=== PATIENT | female | born 1970 | race Caucasian/White ===

== ENCOUNTER 2025-01-12 07:26 | Inpatient (IN) | payer MEDICAID, OTHER ==
[2025-01-12] VITALS (10 sets, daily range): BP systolic 121–135; BP diastolic 76–93; PULSE 77–111; RESP 17–20; TEMP 97.9–98.4; O2SAT 90–97
[~2025-01-12] VITALS: Ht 160 cm; Wt 84.7 kg
[~2025-01-12 07:26] MED LIST: IRONTAB35; LISI20TA56
--- NOTE | 2025-01-12 07:55 | ED.PDOC ---
SOB-HPI HPI Comments 54 year old female PMHx HTN, COPD, asthma presents to the ED with a chief complaint of shortness of breath onset 1 day. Patient states she has been experiencing shortness of breath as well as cough for the past day. Upon ED arrival, O2 sat was 91%, accessory muscle was being used, was placed on 2L NC. Patient states she was in this ED yesterday with her son, similar symptoms. She had breathing treatment at home with no relief. Denies fever, chills, headache, dizziness, chest pain, nausea, vomiting, diarrhea. No other symptoms or modifying factors present at this time. Chief Complaint: Shortness of Breath Time Seen by MD: 07:40 Reviewed notes: Medications, Allergies Information Source: Patient Mode of Arrival: Ambulatory Severity: Moderate Timing: Days Duration: Since onset Context: At Rest PE Risk Factors: None History of: Asthma, COPD Prehospital treatment: None Modifying Factors: Nothing Associated Signs and Symptoms: Cough Past Medical History PAST MEDICAL HISTORY: Asthma, COPD, HTN Surgical History: BTL PUBLIC HEALTH AIDE History: No Pertinent PUBLIC HEALTH AIDE History Family History Family History: No family hx of Cancer, No family hx of DM Social History Smoker: Cigarettes, Less Than 1 Pack/Day Alcohol: Other Drugs: Denies Drug Use Lives In: Home Constitutional: denies: chills, diaphoresis, fatigue, fever, malaise, sweats, weakness, others EENTM: denies: blurred vision, double vision, ear bleeding, ear discharge, ear drainage, ear pain, ear ringing, eye pain, eye redness, hearing loss, mouth pain, mouth swelling, nasal discharge, nose bleeding, nose congestion, nose pain, photophobia, tearing, throat pain, throat swelling, voice changes, others Respiratory: reports: cough, shortness of breath; denies: hemoptysis, orthopnea, SOB at rest, SOB with excertion, stridor, wheezing, others Cardiovascular: denies: chest pain, dizzy spells, diaphoresis, Dyspnea on exertion, edema, irregular heart beat, left arm pain, lightheadedness, palpitations, PND, syncope, others Gastrointestinal: denies: abdomen distended, abdominal pain, blood streaked bowels, constipated, diarrhea, dysphagia, difficulty swallowing, hematemesis, melena, nausea, poor appetite, poor fluid intake, rectal bleeding, rectal pain, vomiting, others Genitourinary: denies: abnormal vagina bleeding, burning, dyspareunia, dysuria, flank pain, frequency, hematuria, incontinence, pain, , vagina discharge, urgency, others Neurological: denies: dizziness, fainting, headache, left sided numbness, left sided weakness, numbness, paresthesia, pre-existing deficit, right sided numbness, right sided weakness, seizure, speech problems, tingling, tremors, weakness, others Musculoskeletal: denies: back pain, gout, joint pain, joint swelling, muscle pain, muscle stiffness, neck pain, others Integumetry: denies: bruises, change in color, change in hair/nails, dryness, laceration, lesions, lumps, rash, wounds, others Allergic/Immunocompromised: denies: Difficulty Healing, Frequent Infections, Hives, Itching, others Hematologic/Lymphatic: denies: anemia, blood clots, easy bleeding, easy bruising, swollen glands, others Endocrine: denies: excessive hunger, excessive sweating, excessive thirst, excessive urination, flushing, intolerance to cold, intolerance to heat, unexplained weight gain, unexplained weight loss, others Psychiatric: denies: anxiety, bipolar disorder, depression, hopeless, panic disorder, schizophrenia, sleepless, suicidal, others All Other Systems: Reviewed and Negative Physical Exam General Appearance: Moderate Distress, Normal HEENT: Normal ENT Inspection, Pharynx Normal, TMs Normal Neck: Full Range of Motion, Non-Tender, Normal, Normal Inspection Respiratory: Accessory Muscle Use, Chest Non-Tender, Respiratory Distress, Wheezing Cardiovascular: No Edema, No JVD, No Murmur, No Gallop, Normal Peripheral Pulses, Regular Rate/Rhythm Breast Exam: Deferred Gastrointestinal: No Organomegaly, Non Tender, No Pulsatile Mass, Normal Bowel Sounds, Soft Genitalia: Deferred Pelvic: Deferred Rectal: Deferred Extremities: No calf tenderness, Normal capillary refill, Normal inspection, No rmal range of motion, Non-tender, No pedal edema Musculoskeletal : Apperance: Normal Neurologic: Alert, fine grader II-XII nml as Tested, No Motor Deficits, Normal Affect, Normal Mood, No Sensory Deficits Cerebellar Function: NOT DONE Reflexes: NOT DONE Skin: Dry, Normal Color, Warm Peripheral Pulses: 3+ Radial (R), 3+ Radial (L) Lymphatic: No Adenopathy Was a procedure done? Was a procedure done?: No Differential Dx Differential Diagnosis: Anxiety, Asthma, Bronchitis, CHF, COPD X-Ray, Labs, Meds, VS Vital Signs Date Time Temp Pulse Resp B/P (MAP) Pulse Ox O2 Delivery O2 Flow Rate FiO2 01/12/25 08:41 18 95 Nasal Cannula* 2 28 01/12/25 08:24 84 01/12/25 07:37 81 01/12/25 07:35 97.7 86 17 127/81 (96) 95 97.7 01/12/25 07:35 86 17 95 Nasal Cannula* 2 28 01/12/25 07:27 98.9 100 24 137/86 91 98.9 Lab Test 01/12/25 09:05 01/12/25 08:37 Range/Units Urine Color Light-yellow Yellow Urine Clarity Clear Clear Urine pH 6.5 5.0-9.0 Urine Specific [place] 1.011 1.001-1.035 Urine Protein Negative Negative Urine Ketones Negative Negative Urine Blood Negative Negative /uL Urine Nitrite Negative Negative Urine Bilirubin Negative Negative Urine Urobilinogen Normal Negative mg/dL Urine Leukocyte Esterase Negative Negative /uL Urine RBC <1 0 - 4 /hpf Urine Microscopic WBC < 1 0-5 /HPF Urine Squamous Epithelial Cells Few <5 /hpf Urine Bacteria None seen None Seen /hpf Urine Glucose Normal Normal mg/dL White Blood Count 7.0 4.4-10.8 10^3/uL Red Blood Count 4.47 4.0-5.20 10^6/uL Hemoglobin 13.5 12.2-16.2 g/dL Hematocrit 40.6 36.0-46.0 % Mean Corpuscular Volume 90.8 80.0-100.0 fL Mean Corpuscular Hemoglobin 30.3 28.0-32.0 pg Mean Corpuscular Hemoglobin Concent 33.3 32.0-36.0 g/dL Red Cell Distribution Width 13.6 11.8-14.3 % Platelet Count 285 140-450 10^3/uL Mean Platelet Volume 7.8 6.9-10.8 fL Neutrophils (%) (Auto) 64.6 37.0-80.0 % Lymphocytes (%) (Auto) 23.8 10.0-50.0 % Monocytes (%) (Auto) 6.9 0.0-12.0 % Eosinophils (%) (Auto) 4.0 0.0-7.0 % Basophils (%) (Auto) 0.7 0.0-2.0 % Neutrophils # (Auto) 4.5 1.6-8.6 10 ^3/uL Lymphocytes # (Auto) 1.7 0.4-5.4 10 ^3/uL Monocytes # (Auto) 0.5 0-1.3 10 ^3/uL Eosinophils # (Auto) 0.3 0-0.8 10 ^3/uL Basophils # (Auto) 0.1 0-0.2 10 ^3/uL Nucleated Red Blood Cells 0.1 % Sodium Level 141 136-145 mmol/L Potassium Level 3.5 3.5-5.1 mmol/L Chloride Level 106 98-107 mmol/L Carbon Dioxide Level 27 20-31 mmol/L Anion Gap 8 5-15 Blood Urea Nitrogen 10 9-23 mg/dL Creatinine 0.74 0.550-1.02 mg/dL Glomerular Filtration Rate Calc 95 >90 mL/min BUN/Creatinine Ratio 13.5 10.0-20.0 Serum Glucose 108 H 74-106 mg/dL Calcium Level 10.5 H 8.7-10.4 mg/dL Troponin I High Sensitivity 3 L </=34 ng/L Current Medications Medications (Trade) Dose Ordered Sig/Yazmin Route Start Time Stop Time Status Last Admin Methylprednisolone Sodium Succinate (Solu Medrol) 125 mg ONCE ONCE IV 01/12/25 08:30 01/12/25 08:32 DC 01/12/25 08:57 Albuterol (Ventolin Medneb) 5 mg ONCE ONCE NEB 01/12/25 08:30 01/12/25 08:32 DC 01/12/25 08:39 Patient alert. Vitals stable. Came in because of shortness a breath. Answering all questions. Using accessory muscles. Placed on oxygen. Possible pneumonitis. Possible pneumonia. Family members sick. WBC within normal limits. Hemoglobin within normal limits. Was given breathing treatment. Was given steroid. Explained to the patient. Continue monitoring. [address] [address] Ph: [phone] DIAGNOSTIC IMAGING Diagnostic Imaging Report : [id number] Signed PATIENT: ALLYN GUTIÉRREZ ACCT: [id number] UNIT: [id number] : 1970 LOC: ER ROOM / BED: / AGE / SEX: 54 / F ADM STATUS: REG ER SERVICE 9 ORDERING PHYSICIAN: JR GILES MD PROCEDURE(s): CXRP - CHEST PORTABLE REASON: sob ORDER NUMBER(s): [id number], ACCESSION NUMBER(s): [id number] INDICATION: sob TECHNIQUE: Frontal view of the chest. COMPARISON: None FINDINGS: . The heart and mediastinal contours are grossly unremarkable. There is no evidence of pleural disease. The lungs are clear. The bony structures of the chest are intact without fracture. IMPRESSION: 1. No evidence of acute disease. ATED BY: PER MOORE MD DICTATED DATE/TIME: 01/12/25913 SIGNED BY: PER MOORE MD SIGNED DATE/TIME: 01/12/25913 CC: Time of 1ST Reevaluation: 08:10 Reevaluation 1ST: Unchanged Patient Education/Counseling: Diagnosis, Treatment, Prognosis Family Education/Counseling: No Family Present SEPSIS Sepsis Screen Date sepsis recognized/suspect: Jan 12, 2025 Time Sepsis recognized/suspect: 727 Recent Procedure: No On Antibiotic Therapy: No Respiratory Rate >20: Yes Heart Rate >90: Yes Temp<36 C (96.8 F) or >38.3 C: No SBP <90 or MAP <65 mmHG: No New Acute Mental Status Change: No Is the patient on CPAP, BIPAP,: No Physician Orders Chest Portable (01/12/25 08:30) Electrocardigram (01/12/25 08:44) Vital Signs Date Time Temp Pulse Resp B/P (MAP) Pulse Ox O2 Delivery O2 Flow Rate FiO2 01/12/25 08:41 18 95 Nasal Cannula* 2 28 01/12/25 08:24 84 01/12/25 07:37 81 01/12/25 07:35 97.7 86 17 127/81 (96) 95 97.7 01/12/25 07:35 86 17 95 Nasal Cannula* 2 28 01/12/25 07:27 98.9 100 24 137/86 91 98.9 Laboratory Tests Test 01/12/25 08:37 White Blood Count 7.0 10^3/uL (4.4-10.8) Medications Medications Dose Ordered Sig/Yazmin Route Start Time Stop Time Status Last Admin Dose Admin Albuterol 5 mg ONCE ONCE NEB 01/12/25 08:30 01/12/25 08:32 DC 01/12/25 08:39 Ipratropium [place] 0.5 mg STK-MED ONCE .ROUTE 01/12/25 08:38 01/12/25 08:33 DC 01/12/25 08:40 Methylprednisolone Sodium Succinate 125 mg ONCE ONCE IV 01/12/25 08:30 01/12/25 08:32 DC 01/12/25 08:57 Departure 1 Departure Time of Disposition: 09:42 Impression: Primary Impression: Acute respiratory distress Additional Impression: Pneumonitis Disposition: ADMITTED INPATIENT Admit to: Med Surg Condition: Guarded Critical Care Note Critical Care Time?: Yes (90 min-critical care time only) Stability Stability form required: No Heart Score Heart Score: Heart Score Response (Comments) Value History Slightly Suspicious 0 EKG Normal 0 Age 45-64 1 Risk Factors >3 or Hx ASHD 2 Troponin Normal limit 0 Total 3 I personally scribed for JR GILES MD ([email or web address]) on 01/12/25 at 07:55. Electronically submitted by Keesha Torres ([email or web address]). I personally scribed for JR GILES MD ([email or web address]) on 01/12/25 at 09:50. Electronically submitted by Keesha Torres ([email or web address]). JR GILES MD Jan 12, 2025 07:55
[2025-01-12] MEDS: ALBUTEROL SULF 2.5 MG/0.5ML(0.5%) NEB SOLN NEB ONE (08:39)
[2025-01-12] MEDS: IPRATROPIUM BROM 0.5 MG/2.5ML INH SOL ONE (08:40)
[2025-01-12] MEDS: ALBUTEROL SULF 2.5 MG/0.5ML(0.5%) NEB SOLN ONE (08:40)
[2025-01-12] MEDS: methylPREDNISolone SOD SUCC 125 MG/2 ML VL IV ONE (08:57)
[2025-01-12 09:06] LABS: Hematocrit 40.6 % (36.0-46.0); Hemoglobin 13.5 g/dL (12.2-16.2); Mean Corpuscular Hemoglobin 30.3 pg (28.0-32.0); Mean Corpuscular Volume 90.8 fL (80.0-100.0); Nucleated Red Blood Cells % 0.1 %
--- NOTE | 2025-01-12 09:16 | DVH ---
INDICATION: sob TECHNIQUE: Frontal view of the chest. COMPARISON: None FINDINGS: . The heart and mediastinal contours are grossly unremarkable. There is no evidence of pleural disea se. The lungs are clear. The bony structures of the chest are intact without fracture. IMPRESSION: 1. No evidence of acute disease.
[2025-01-12 09:20] LABS: Chloride 106 mmol/L (98-107); Sodium 141 mmol/L (136-145)
[2025-01-12 09:21] LABS: Urine Protein, UAD Negative (Negative)
[2025-01-12 09:21] LABS: Anion Gap 8 (5-15); Carbon Dioxide 27 mmol/L (20-31)
[2025-01-12 09:26] LABS: BUN/Creatinine Ratio 13.5 (10.0-20.0); Blood Urea Nitrogen 10 mg/dL (9-23)
[2025-01-12 09:27] LABS: Calcium 10.5 mg/dL (8.7-10.4); Glucose 108 mg/dL (74-106); Potassium 3.5 mmol/L (3.5-5.1)
[2025-01-12] MEDS ORDERED: ONDANSETRON HCL 4 MG/2 ML VIAL IV PRN (12:30)
--- NOTE | 2025-01-12 13:01 | DVHHP2 ---
History of Present Illness Reason for Visit: Shortness of breath History of Present Illness Pamela Pitt is a 54-year-old female with past medical history of asthma, COPD, and hypertension who comes to the hospital with complaints of shortness of breath and cough. The patient was in the ER yesterday with her adult autistic janet banks who has been sick with similar complaints. He was admitted. While she was in the ER she began to feel tired and a dry cough started. When he was moved to a room she went with him. She started feeling worse and her cough began to worsen. She went home hoping some rest would help, however she continued to worsen prompting her to come to be seen in the hospital. Cardiovascular: HTN Pulmonary: Asthma, COPD Past Surgical History: Tubal Ligation Smoke: <1 pack per day ALCOHOL: rare Drugs: None Lives: with Family Domestic Violence: Neg Review of Systems Constitutional: No: Fever, Chills, Sweats, Weakness, Malaise, Other Eyes: No: Pain, Vision change, Conjunctivae inflammation, Eyelid inflammation, Other, Redness ENT: No: Ear pain, Ear discharge, Nose pain, Nose discharge, Nose congestion, Mouth pain, Mouth swelling, Throat pain, Throat swelling, Other Respiratory: Cough, Shortness of breath, SOB with excertion, Wheezing, Pleuritic Pain; No: Dry, Hemoptysis, Sputum, Wheezing, Other Cardiovascular: No: Chest Pain, Palpitations, Orthopnea, Paroxysmal Noc. Dyspnea, Edema, Lt Headedness, Other Gastrointestinal: No: Nausea, Vomiting, Abdominal Pain, Diarrhea, Constipation, Melena, Hematochezia, Other Genitourinary: No Dysuria, No Frequency, No Incontinence, No Hematuria, No Retention, No Other Musculoskeletal: No: other, neck pain, shoulder pain, arm pain, back pain, hand pain, leg pain, foot pain Skin: No: Rash, Lesions, Jaundice, Bruising, Other Neurological: No: Weakness, Numbness, Incoordination, Change in speech, Confusion, Seizures, Other Allergies: Coded Allergies: NO KNOWN ALLERGIES (Unverified , 11/14/12) Medications Current Medications Medications Dose Ordered Sig/Yazmin Route Start Time Stop Time Status Last Admin Dose Admin Acetaminophen/ Hydrocodone Bitart 1 tab Q4HP PRN PO 01/12/25 12:30 Ondansetron HCl 4 mg Q4HP PRN IV 01/12/25 12:30 Docusate Sodium 100 mg BIDPRN PRN PO 01/12/25 12:30 Acetaminophen 650 mg Q6HP PRN PO 01/12/25 12:30 Exam Vital Signs Vital Signs Date Time Temp Pulse Resp B/P (MAP) Pulse Ox O2 Delivery O2 Flow Rate FiO2 01/12/25 12:00 75 15 129/76 (93) 97 01/12/25 08:41 Nasal Cannula* 2 28 01/12/25 07:35 97.7 97.7 General Appearance: Alert, Oriented X3, Cooperative, moderate distress HEENT: Atraumatic, PERRLA, Mucous membr. moist/pink Respiratory: Other (Wheezing throughout) Cardiovascular: Regular rate, Normal S1, Normal S2 Abdominal: Normal bowel sounds, Soft, No tenderness, No hepatospenomegaly Extremities: No clubbing, No cyanosis, No edema, Normal pulses, No tenderness/swelling Skin: No rashes, No breakdown, No significant lesion Neuro: Normal gait, Normal speech, Strength at 5/5 X4 ext, Normal tone Psych/Mental Status: Mental status NL, Mood NL Labs/Xrays Labs Test 01/12/25 09:05 01/12/25 08:37 Range/Units Urine Color Light-yellow Yellow Urine Clarity Clear Clear Urine pH 6.5 5.0-9.0 Urine Specific [place] 1.011 1.001-1.035 Urine Protein Negative Negative Urine Ketones Negative Negative Urine Blood Negative Negative /uL Urine Nitrite Negative Negative Urine Bilirubin Negative Negative Urine Urobilinogen Normal Negative mg/dL Urine Leukocyte Esterase Negative Negative /uL Urine RBC <1 0 - 4 /hpf Urine Microscopic WBC < 1 0-5 /HPF Urine Squamous Epithelial Cells Few <5 /hpf Urine Bacteria None seen None Seen /hpf Urine Glucose Normal Normal mg/dL White Blood Count 7.0 4.4-10.8 10^3/uL Red Blood Count 4.47 4.0-5.20 10^6/uL Hemoglobin 13.5 12.2-16.2 g/dL Hematocrit 40.6 36.0-46.0 % Mean Corpuscular Volume 90.8 80.0-100.0 fL Mean Corpuscular Hemoglobin 30.3 28.0-32.0 pg Mean Corpuscular Hemoglobin Concent 33.3 32.0-36.0 g/dL Red Cell Distribution Width 13.6 11.8-14.3 % Platelet Count 285 140-450 10^3/uL Mean Platelet Volume 7.8 6.9-10.8 fL Neutrophils (%) (Auto) 64.6 37.0-80.0 % Lymphocytes (%) (Auto) 23.8 10.0-50.0 % Monocytes (%) (Auto) 6.9 0.0-12.0 % Eosinophils (%) (Auto) 4.0 0.0-7.0 % Basophils (%) (Auto) 0.7 0.0-2.0 % Neutrophils # (Auto) 4.5 1.6-8.6 10 ^3/uL Lymphocytes # (Auto) 1.7 0.4-5.4 10 ^3/uL Monocytes # (Auto) 0.5 0-1.3 10 ^3/uL Eosinophils # (Auto) 0.3 0-0.8 10 ^3/uL Basophils # (Auto) 0.1 0-0.2 10 ^3/uL Nucleated Red Blood Cells 0.1 % Sodium Level 141 136-145 mmol/L Potassium Level 3.5 3.5-5.1 mmol/L Chloride Level 106 98-107 mmol/L Carbon Dioxide Level 27 20-31 mmol/L Anion Gap 8 5-15 Blood Urea Nitrogen 10 9-23 mg/dL Creatinine 0.74 0.550-1.02 mg/dL Glomerular Filtration Rate Calc 95 >90 mL/min BUN/Creatinine Ratio 13.5 10.0-20.0 Serum Glucose 108 H 74-106 mg/dL Calcium Level 10.5 H 8.7-10.4 mg/dL Troponin I High Sensitivity 3 L </=34 ng/L TECHNIQUE: Frontal view of the chest. FINDINGS: The heart and mediastinal contours are grossly unremarkable. There is no evidence of pleural disease. The lungs are clear. The bony structures of the chest are intact without fracture. IMPRESSION: 1. No evidence of acute disease. SEPSIS Sepsis Screen Date sepsis recognized/suspect: Jan 12, 2025 Time Sepsis recognized/suspect: 07 Recent Procedure: No On Antibiotic Therapy: No Respiratory Rate >20: No Heart Rate >90: No Temp<36 C (96.8 F) or >38.3 C: No SBP <90 or MAP <65 mmHG: No New Acute Mental Status Change: No Is the patient on CPAP, BIPAP,: No Physician Orders Chest Portable (01/12/25 08:30) Electrocardigram (01/12/25 08:44) Admit (01/12/25 12:29) Code Status (01/12/25 12:29) 2 Gm Sodium Diet (01/12/25 Lunch) Hydrocodone-Acet 5/325mg Tab ([place] (01/12/25 12:30) Ondansetron Hcl (Zofran) (01/12/25 12:30) Docusate Sodium Capsule (Colace Capsule) (01/12/25 12:30) Complete Blood Count (01/13/25 04:00) Comprehensive Metabolic Panel (01/13/25 04:00) Condition: Serious (01/12/25 12:29) Acetaminophen Tablet (Tylenol Tablet) (01/12/25 12:30) Vital Signs Date Time Temp Pulse Resp B/P (MAP) Pulse Ox O2 Delivery O2 Flow Rate FiO2 01/12/25 12:00 75 15 129/76 (93) 97 01/12/25 10:00 72 12 115/69 (84) 94 01/12/25 08:41 18 95 Nasal Cannula* 2 28 01/12/25 08:24 84 01/12/25 07:37 81 01/12/25 07:35 97.7 86 17 127/81 (96) 95 97.7 01/12/25 07:35 86 17 95 Nasal Cannula* 2 28 01/12/25 07:27 98.9 100 24 137/86 91 98.9 Laboratory Tests Test 01/12/25 08:37 White Blood Count 7.0 10^3/uL (4.4-10.8) Medications Medications Dose Ordered Sig/Yazmin Route Start Time Stop Time Status Last Admin Dose Admin Albuterol 5 mg ONCE ONCE NEB 01/12/25 08:30 01/12/25 08:32 DC 01/12/25 08:39 5 MG Ipratropium [place] 0.5 mg STK-MED ONCE .ROUTE 01/12/25 08:38 01/12/25 08:33 DC 01/12/25 08:40 0.5 MG Methylprednisolone Sodium Succinate 125 mg ONCE ONCE IV 01/12/25 08:30 01/12/25 08:32 DC 01/12/25 08:57 125 MG Assessment/Plan Assessment/Plan Assessment: Acute hypoxic respiratory failure, Possible pneumonitis, COPD exacerbation, Plan: Admit to Med-Surg, Breathing treatments, IV steroids, Supplemental oxygen as needed, COVID swab, Influenza A&B swab, Home medications reconciled, Plan discussed with: Patient My Orders Orders - KRISH OBRIEN Procedure Category Date Status Time Admit ADMIT 01/12/25 Transmitted 12:29 Code Status CODE 01/12/25 Transmitted 12:29 2 Gm Sodium Diet DIET 01/12/25 Transmitted Lunch Hydrocodone-Acet PHA 01/12/25 In Process 5/325mg Tab ([place] 12:30 Ondansetron Hcl PHA 01/12/25 In Process (Zofran) 12:30 Docusate Sodium PHA 01/12/25 In Process Capsule (Colace 12:30 Complete Blood Count LAB 01/13/25 Verified 04:00 Comprehensive LAB 01/13/25 Verified Metabolic Panel 04:00 Condition: Serious ALBER 01/12/25 In Process 12:29 Acetaminophen Tablet PHA 01/12/25 In Process (Tylenol Tablet) 12:30 Date of Service: Jan 12, 2025 Billing Provider: KRISH OBRIEN Common Visit Codes: [id number] INP/OBS CARE (MOD) KRISH OBRIEN Jan 12, 2025 13:01
[2025-01-12] MEDS: ALBUTEROL SULF 2.5 MG/0.5ML(0.5%) NEB SOLN NEB SCH (13:07)
[2025-01-12] MEDS: IPRATROPIUM BROM 0.5 MG/2.5ML INH SOL NEB SCH (13:07)
[2025-01-12 13:28] LABS: COVID19 ANTIGEN SOFIA FIA NEGATIVE (NEGATIVE)
[2025-01-12] MEDS ORDERED: AMLO1TAB23 PO (14:46)
[2025-01-12] MEDS: ACETAMINOPHEN 325 MG TAB PO PRN (20:35)
[2025-01-12] MEDS: methylPREDNISolone SOD SUCC 40 MG/ML VL IV SCH (21:54)
[2025-01-13] VITALS (18 sets, daily range): BP systolic 116–133; BP diastolic 62–96; PULSE 78–111; RESP 14–20; TEMP 97.8–98.5; O2SAT 93–100
[2025-01-13] MEDS: HYDROcodone-ACET 5/325MG TAB PO PRN (05:37)
[2025-01-13 06:09] LABS: Hematocrit 39.6 % (36.0-46.0); Hemoglobin 13.4 g/dL (12.2-16.2); Mean Corpuscular Hemoglobin 30.5 pg (28.0-32.0); Mean Corpuscular Volume 90.2 fL (80.0-100.0); Nucleated Red Blood Cells % 0.0 %
[2025-01-13 06:29] LABS: Alanine Aminotransferase 16 U/L (7-40); Alkaline Phosphatase 72 U/L (46-116); Carbon Dioxide 25 mmol/L (20-31)
[2025-01-13 06:30] LABS: Albumin 4.1 g/dL (3.2-4.8); Anion Gap 8 (5-15); BUN/Creatinine Ratio 16.4 (10.0-20.0); Blood Urea Nitrogen 12 mg/dL (9-23); Potassium 4.1 mmol/L (3.5-5.1); Sodium 141 mmol/L (136-145); Total Protein 7.1 g/dL (5.7-8.2)
[2025-01-13 06:31] LABS: Bilirubin, Total 0.8 mg/dL (0.2-1.0)
[2025-01-13 06:32] LABS: Calcium 10.6 mg/dL (8.7-10.4); Chloride 108 mmol/L (98-107); Glucose 143 mg/dL (74-106)
[2025-01-13] MEDS: AZITHROMYCIN 250 MG TAB PO ONE (10:44)
[2025-01-13] MEDS ORDERED: IPRATROPIUM BROM 0.5 MG/2.5ML INH SOL NEB PRN (13:15)
[2025-01-13] MEDS ORDERED: ALBUTEROL SULF 2.5 MG/0.5ML(0.5%) NEB SOLN NEB PRN (13:15)
--- NOTE | 2025-01-13 13:44 | ECG ---
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
--- NOTE | 2025-01-13 15:18 | DVHPNRES ---
Progress Note Date Seen: Jan 13, 2025 Resident Creating Document: YOVANA SEPULVEDA RESIDENT Medical Necessity Reason Pt with a Central, PICC or Fol: No Subjective Review of Systems Charo Pitt 54-year-old female with past medical history of asthma, COPD, hypertension, cardiomyopathy presented with complaints of shortness of breath, cough, chest tightness since 1 day. Patient states he was the ER the previous day with her adult autistic son who came in with similar complaints. He was admitted to the hospital the patient went back home. At home she experienced these symptoms which brought her back to the ED. She states that her last asthma attack was 1 year back. She states that she has to use rescue albuterol nebulization once in 3 months. PMHx:asthma, COPD, hypertension, cardiomyopathy PSHx: Tubal ligation Family history: no relevant family history Social history: 20 pack year smoking history, occasional alcohol use, denies illicit drug use. Home medication: Trelegy, amlodipine 10 mg Allergic history: no known allergies PCP: Dr. Chen CONSTITUTIONAL: Fever, night sweats, weight loss, Lymphadenopathy, ecchymoses, fatigue: Negative DERMATOLOGIC: Rash, New/growing/changing skin lesions: Negative HEENT: Vision change, eye pain, Rhinorrhea, sinus pain, epistaxis, dysphagia, odynophagia, globus sensation, Change in hearing, tinnitus, vertigo, otalgia, Dental problems, oral ulcers or lesions: : Negative ENDOCRINE: Weight change, heat or cold intolerance, tremor, insomnia, neck pain or swelling, Polyuria, polydipsia, polyphagia, Abnormal hair growth, change in nails: Negative CARDIOVASCULAR: Chest pain, palpitations, syncope, Edema, cyanosis, claudication, Orthopnea, paroxysmal nocturnal dyspnea: Negative PULMONARY: dyspnea with exertion, hemoptysis, wheezing, chest pain : Negative. Complains of shortness of breath and cough GI: Nausea, vomiting, diarrhea, melena, hematochezia, Change in appetite, abdominal pain, change in bowel habits or stools: Negative : Dysuria, frequency, urgency, Urinary incontinence, hematuria, foamy urine, nocturia, Change in libido, erectile dysfunction, Change in menses, dysmenorrhea, dyspaerunia, pelvic pain: : Negative MUSCULOSKELETAL: Joint swelling or pain, muscle pain, back pain: : Negative NEUROLOGIC: Headache, scotoma, Change in smell or taste, change in facial muscles, Muscle weakness, paresthesias, anesthesia, Ataxia, change in speech: Negative PSYCHIATRIC: Depression, anxiety, hallucinations, lilly, suicidal/homicidal thoughts, Binging, purging: Negative Objective vital signs Vital Sign Date Time Temp Pulse Resp B/P (MAP) Pulse Ox O2 Delivery O2 Flow Rate FiO2 01/13/25 14:49 93 01/13/25 14:06 101 14 01/13/25 12:45 98.0 133/78 (96) 98.0 01/13/25 10:25 Nasal Cannula* 3 32 Total Intake and Output 01/12/25 01/12/25 01/13/25 15:00 23:00 07:00 Intake Total 350 ml Balance 350 ml medications Current Medications Medications Dose Ordered Sig/Yazmin Route Start Time Stop Time Status Last Admin Dose Admin Acetaminophen/ Hydrocodone Bitart 1 tab Q4HP PRN PO 01/12/25 12:30 01/13/25 13:42 1 TAB Ondansetron HCl 4 mg Q4HP PRN IV 01/12/25 12:30 Docusate Sodium 100 mg BIDPRN PRN PO 01/12/25 12:30 Acetaminophen 650 mg Q6HP PRN PO 01/12/25 12:30 01/12/25 20:35 650 MG Methylprednisolone Sodium Succinate 40 mg BID IV 01/12/25 22:00 01/13/25 09:13 40 MG Albuterol 2.5 mg Q4HWA NEB 01/12/25 14:00 01/13/25 13:58 2.5 MG Ipratropium [place] 0.5 mg Q4HWA NEB 01/12/25 14:00 01/13/25 13:58 0.5 MG Amlodipine Besylate 10 mg DAILY PO 01/13/25 10:00 01/13/25 09:13 10 MG Albuterol 2.5 mg Q2HPRN PRN NEB 01/13/25 13:15 Ipratropium [place] 0.5 mg Q2HPRN PRN NEB 01/13/25 13:15 Examination General Appearance: Alert, Oriented X3, Cooperative, No acute distress HEENT: Atraumatic, PERRLA, EOMI, Mucous membrane moist/pink Respiratory: bilateral wheezing present Cardiovascular: Regular rate, Normal S1, Normal S2, No murmurs, no chest wall tenderness Abdominal: Normal bowel sounds, Soft, No tenderness, No hepatospenomegaly, No masses Extremities: No clubbing, No cyanosis, No edema, Normal pulses, No tenderness/swelling Skin: No rashes, No breakdown, No significant lesion Neuro: Normal gait, Normal speech, Strength at 5/5 X4 ext, Normal tone, Sensation intact, Cranial nerves 3-12 NL, Reflexes 2+ Psych/Mental Status: Mental status NL, Mood NL laboratory and microbiology Laboratory Tests 01/13/25 05:19 Test 01/13/25 05:19 Range/Units Serum Glucose 143 H 74-106 mg/dL Problem List/Assessment/Plan Problem List/Assessment/Plan Assessment and plan COPD exacerbation asthma exacerbation albuterol nebulization Ipratropium nebulization Methylprednisolone Magnesium Supportive oxygen, humidified azithromycin Rule out Upper respiratory tract infection COVID swab, influenza swab Essential hypertension Continue amlodipine DIET: Cardiac diet CODE STATUS: Goal of care discussed for more than 18 minutes, full code DISPOSITION: Med/surge RECONCILED HOME MEDS: Trelegy, amlodipine 10 mg PCP: Dr. Chen Patient's status and plan discussed with the patient. Case discussed with Dr. Contreras Plan discussed with: Patient My Orders My Orders Orders - YOVANA SEPULVEDA Procedure Category Date Status Time Albuterol Medneb PHA 01/13/25 In Process (Ventolin Medneb) 13:15 Ipratropium Medneb PHA 01/13/25 In Process (Atrovent Medneb) 13:15 Communication Order ORDERS 01/13/25 Transmitted 13:08 Date of Service: Jan 13, 2025 Billing Provider: OLI CONTRERAS MD Common Visit Codes: [id number] INP/OBS CARE(HIGH) YOVANA SEPULVEDA Jan 13, 2025 15:18 OLI CONTRERAS MD Jan 19, 2025 20:21
--- NOTE | 2025-01-13 22:20 | DVHSR ---
APPROVED REPORT EXAM: LIMITED Two-dimensional and M-mode echocardiogram with Doppler and color Doppler. Blood Pressure: 120/70 mmHg INDICATION SOB, HX of peripartum cardiomyopathy RISK FACTORS Height: 63, Weight: 183 DIMENSIONS LVDd4.8 (3.8-5.7cm)LA (2D)3.9 (1.9-4.0cm)Aortic Root3.8 (2.0-3.7cm) LVDs3.2 (2.5-4.0cm)LA (MM) (1.9-4.0cm)Aortic Cusp Exc (1.5-2.0cm) EF (%) 63.0 (55-70%)Rt. Atrium (1.9-4.0cm)Asc. Aorta cm Mitral Valve MitralMitral Stenosis E/A ratio0.02D MVAcm2 Aortic Valve Aortic ValveAortic Stenosis LVOT Diameter2.2 (1.8-2.4cm)Doppler AVAcm2 Pulmonic Valve V21.28m/s Tricuspid Valve TR Velocity2.70m/s [id number] Other Information Technically limited study due to patient was non compliant during exam. She kept moving and answered her phone 4 times while trying to scan her. Patient refused remaining amount of study. Conclusion LIMITED STUDY LV EF IS 65% NORMAL VALVES NO EFFUSION
[2025-01-14] VITALS (19 sets, daily range): BP systolic 124–144; BP diastolic 66–84; PULSE 61–98; RESP 14–20; TEMP 97.3–98.3; O2SAT 91–100
[2025-01-14 06:04] LABS: Hematocrit 38.3 % (36.0-46.0); Hemoglobin 12.8 g/dL (12.2-16.2); Mean Corpuscular Hemoglobin 30.3 pg (28.0-32.0); Mean Corpuscular Volume 90.6 fL (80.0-100.0); Nucleated Red Blood Cells % 0.0 %
[2025-01-14 06:31] LABS: Alanine Aminotransferase 18 U/L (7-40); Albumin 4.2 g/dL (3.2-4.8); Alkaline Phosphatase 66 U/L (46-116); Anion Gap 9 (5-15); BUN/Creatinine Ratio 18.5 (10.0-20.0); Bilirubin, Total 0.6 mg/dL (0.2-1.0); Blood Urea Nitrogen 15 mg/dL (9-23); Carbon Dioxide 25 mmol/L (20-31); Chloride 107 mmol/L (98-107); Potassium 4.5 mmol/L (3.5-5.1); Sodium 141 mmol/L (136-145); Total Protein 7.2 g/dL (5.7-8.2)
[2025-01-14 06:38] LABS: Calcium 10.7 mg/dL (8.7-10.4); Glucose 132 mg/dL (74-106)
[2025-01-14] MEDS: DOXYCYCLINE 100MG/100ML 100 ML IV SCH (09:30)
[2025-01-14] MEDS ORDERED: AZITHROMYCIN 250 MG TAB PO SCH (10:00)
[2025-01-14] MEDS: DOCUSATE SOD 100 MG CAP PO PRN (10:59)
--- NOTE | 2025-01-14 14:00 | DVHPNRES ---
Progress Note Date Seen: Jan 14, 2025 Resident Creating Document: YOVANA SEPULVEDA Medical Necessity Reason Pt with a Central, PICC or Fol: No Subjective Review of Systems Patient seen at bedside. Still complains of shortness of breath and the need to use oxygen after going to the restroom. Mild wheezing present Charo Pitt 54-year-old female with past medical history of asthma, COPD, hypertension, cardiomyopathy presented with complaints of shortness of breath, cough, chest tightness since 1 day. Patient states he was the ER the previous day with her adult autistic son who came in with similar complaints. He was admitted to the hospital the patient went back home. At home she experienced these symptoms which brought her back to the ED. She states that her last asthma attack was 1 year back. She states that she has to use rescue albuterol nebulization once in 3 months. PMHx:asthma, COPD, hypertension, cardiomyopathy PSHx: Tubal ligation Family history: no relevant family history Social history: 20 pack year smoking history, occasional alcohol use, denies illicit drug use. Home medication: Trelegy, amlodipine 10 mg Allergic history: no known allergies PCP: Dr. Chen CONSTITUTIONAL: Fever, night sweats, weight loss, Lymphadenopathy, ecchymoses, fatigue: Negative DERMATOLOGIC: Rash, New/growing/changing skin lesions: Negative HEENT: Vision change, eye pain, Rhinorrhea, sinus pain, epistaxis, dysphagia, odynophagia, globus sensation, Change in hearing, tinnitus, vertigo, otalgia, Dental problems, oral ulcers or lesions: : Negative ENDOCRINE: Weight change, heat or cold intolerance, tremor, insomnia, neck pain or swelling, Polyuria, polydipsia, polyphagia, Abnormal hair growth, change in nails: Negative CARDIOVASCULAR: Chest pain, palpitations, syncope, Edema, cyanosis, claudication, Orthopnea, paroxysmal nocturnal dyspnea: Negative PULMONARY: dyspnea with exertion, hemoptysis, wheezing, chest pain : Negative. Complains of shortness of breath and cough GI: Nausea, vomiting, diarrhea, melena, hematochezia, Change in appetite, abdominal pain, change in bowel habits or stools: Negative : Dysuria, frequency, urgency, Urinary incontinence, hematuria, foamy urine, nocturia, Change in libido, erectile dysfunction, Change in menses, dysmenorrhea, dyspaerunia, pelvic pain: : Negative MUSCULOSKELETAL: Joint swelling or pain, muscle pain, back pain: : Negative NEUROLOGIC: Headache, scotoma, Change in smell or taste, change in facial muscles, Muscle weakness, paresthesias, anesthesia, Ataxia, change in speech: Negative PSYCHIATRIC: Depression, anxiety, hallucinations, lilly, suicidal/homicidal thoughts, Binging, purging: Negative Objective vital signs Vital Sign Date Time Temp Pulse Resp B/P (MAP) Pulse Ox O2 Delivery O2 Flow Rate FiO2 01/14/25 13:00 97.9 75 16 137/82 (100) 91 97.9 01/14/25 10:12 Nasal Cannula 3.0 01/14/25 10:12 32 Total Intake and Output 01/13/25 01/13/25 01/14/25 15:00 23:00 07:00 Intake Total 600 ml 400 ml Balance 600 ml 400 ml medications Current Medications Medications Dose Ordered Sig/Yazmin Route Start Time Stop Time Status Last Admin Dose Admin Acetaminophen/ Hydrocodone Bitart 1 tab Q4HP PRN PO 01/12/25 12:30 01/14/25 09:39 1 TAB Ondansetron HCl 4 mg Q4HP PRN IV 01/12/25 12:30 Docusate Sodium 100 mg BIDPRN PRN PO 01/12/25 12:30 01/14/25 10:59 100 MG Acetaminophen 650 mg Q6HP PRN PO 01/12/25 12:30 01/12/25 20:35 650 MG Methylprednisolone Sodium Succinate 40 mg BID IV 01/12/25 22:00 01/14/25 09:41 40 MG Albuterol 2.5 mg Q4HWA NEB 01/12/25 14:00 01/14/25 10:12 2.5 MG Ipratropium [place] 0.5 mg Q4HWA NEB 01/12/25 14:00 01/14/25 10:12 0.5 MG Amlodipine Besylate 10 mg DAILY PO 01/13/25 10:00 01/14/25 09:40 10 MG Albuterol 2.5 mg Q2HPRN PRN NEB 01/13/25 13:15 Ipratropium [place] 0.5 mg Q2HPRN PRN NEB 01/13/25 13:15 Ceftriaxone Sodium 50 ml @ 100 mls/hr DAILY@09 IV 01/14/25 09:30 01/14/25 09:30 100 MLS/HR Doxycycline Hyclate 100 ml @ 50 mls/hr Q12H IV 01/14/25 09:30 01/14/25 09:30 50 MLS/HR Loratadine 10 mg DAILY PO 01/15/25 10:00 Examination General Appearance: Alert, Oriented X3, Cooperative, No acute distress HEENT: Atraumatic, PERRLA, EOMI, Mucous membrane moist/pink Respiratory: bilateral wheezing present Cardiovascular: Regular rate, Normal S1, Normal S2, No murmurs, no chest wall tenderness Abdominal: Normal bowel sounds, Soft, No tenderness, No hepatospenomegaly, No masses Extremities: No clubbing, No cyanosis, No edema, Normal pulses, No tenderness/swelling Skin: No rashes, No breakdown, No significant lesion Neuro: Normal gait, Normal speech, Strength at 5/5 X4 ext, Normal tone, Sensation intact, Cranial nerves 3-12 NL, Reflexes 2+ Psych/Mental Status: Mental status NL, Mood NL laboratory and microbiology Laboratory Tests 01/14/25 05:28 Test 01/14/25 05:28 Range/Units Serum Glucose 132 H 74-106 mg/dL Problem List/Assessment/Plan Problem List/Assessment/Plan Assessment and plan COPD exacerbation asthma exacerbation albuterol nebulization Ipratropium nebulization Methylprednisolone Magnesium Supportive oxygen, humidified azithromycin Rule out Upper respiratory tract infection COVID swab, influenza swab Essential hypertension Continue amlodipine DIET: Cardiac diet CODE STATUS: Goal of care discussed for more than 18 minutes, full code DISPOSITION: Med/surge RECONCILED HOME MEDS: Trelegy, amlodipine 10 mg PCP: Dr. Chen Patient's status and plan discussed with the patient. Case discussed with Dr. Contreras Plan discussed with: Patient Date of Service: Jan 14, 2025 Billing Provider: OLI CONTRERAS MD Common Visit Codes: [id number] INP/OBS CARE(HIGH) YOVANA SEPULVEDA RESIDENT Jan 14, 2025 14:00 OLI CONTRERAS MD Jan 19, 2025 20:21
[2025-01-14] MEDS: LORATADINE 10 MG TAB PO ONE (18:24)
[2025-01-15] VITALS (15 sets, daily range): BP systolic 112–142; BP diastolic 76–93; PULSE 46–90; RESP 14–20; TEMP 97.6–98.3; O2SAT 90–98
[2025-01-15 06:20] LABS: Hematocrit 39.3 % (36.0-46.0); Hemoglobin 13.1 g/dL (12.2-16.2); Mean Corpuscular Hemoglobin 30.4 pg (28.0-32.0); Mean Corpuscular Volume 91.3 fL (80.0-100.0); Nucleated Red Blood Cells % 0.0 %
[2025-01-15 06:21] LABS: Anion Gap 8 (5-15); Carbon Dioxide 25 mmol/L (20-31); Chloride 106 mmol/L (98-107); Potassium 4.3 mmol/L (3.5-5.1); Sodium 139 mmol/L (136-145)
[2025-01-15 06:23] LABS: Calcium 10.9 mg/dL (8.7-10.4)
[2025-01-15 06:25] LABS: BUN/Creatinine Ratio 23.9 (10.0-20.0); Blood Urea Nitrogen 17 mg/dL (9-23)
[2025-01-15 06:27] LABS: Glucose 116 mg/dL (74-106)
[2025-01-15] MEDS: LORATADINE 10 MG TAB PO SCH (09:16)
[2025-01-15] MEDS: predniSONE 20 MG TAB PO ONE (15:45)
[2025-01-15] MEDS ORDERED: methylPREDNISolone SOD SUCC 125 MG/2 ML VL IV SCH (22:00)
[2025-01-16] VITALS (12 sets, daily range): BP systolic 115–138; BP diastolic 81–91; PULSE 72–100; RESP 16–20; TEMP 36.7; O2SAT 90–98
[2025-01-16] MEDS: predniSONE 20 MG TAB PO SCH (10:06)
--- NOTE | 2025-01-16 11:18 | DVHPNRES ---
Progress Note Date Seen: Jan 15, 2025 Resident Creating Document: YOVANA SEPULVEDA RESIDENT Medical Necessity Reason Pt with a Central, PICC or Fol: No Subjective Review of Systems Patient seen at bedside. No new complaints. Mild wheezing present. Weaned to 1 L oxygen. Charo Pitt 54-year-old female with past medical history of asthma, COPD, hypertension, cardiomyopathy presented with complaints of shortness of breath, cough, chest tightness since 1 day. Patient states he was the ER the previous day with her adult autistic son who came in with similar complaints. He was admitted to the hospital the patient went back home. At home she experienced these symptoms which brought her back to the ED. She states that her last asthma attack was 1 year back. She states that she has to use rescue albuterol nebulization once in 3 months. PMHx:asthma, COPD, hypertension, cardiomyopathy PSHx: Tubal ligation Family history: no relevant family history Social history: 20 pack year smoking history, occasional alcohol use, denies illicit drug use. Home medication: Trelegy, amlodipine 10 mg Allergic history: no known allergies PCP: Dr. Chen CONSTITUTIONAL: Fever, night sweats, weight loss, Lymphadenopathy, ecchymoses, fatigue: Negative DERMATOLOGIC: Rash, New/growing/changing skin lesions: Negative HEENT: Vision change, eye pain, Rhinorrhea, sinus pain, epistaxis, dysphagia, odynophagia, globus sensation, Change in hearing, tinnitus, vertigo, otalgia, Dental problems, oral ulcers or lesions: : Negative ENDOCRINE: Weight change, heat or cold intolerance, tremor, insomnia, neck pain or swelling, Polyuria, polydipsia, polyphagia, Abnormal hair growth, change in nails: Negative CARDIOVASCULAR: Chest pain, palpitations, syncope, Edema, cyanosis, claudication, Orthopnea, paroxysmal nocturnal dyspnea: Negative PULMONARY: dyspnea with exertion, hemoptysis, wheezing, chest pain : Negative. Complains of shortness of breath and cough GI: Nausea, vomiting, diarrhea, melena, hematochezia, Change in appetite, abdominal pain, change in bowel habits or stools: Negative : Dysuria, frequency, urgency, Urinary incontinence, hematuria, foamy urine, nocturia, Change in libido, erectile dysfunction, Change in menses, dysmenorrhea, dyspaerunia, pelvic pain: : Negative MUSCULOSKELETAL: Joint swelling or pain, muscle pain, back pain: : Negative NEUROLOGIC: Headache, scotoma, Change in smell or taste, change in facial muscles, Muscle weakness, paresthesias, anesthesia, Ataxia, change in speech: Negative PSYCHIATRIC: Depression, anxiety, hallucinations, lilly, suicidal/homicidal thoughts, Binging, purging: Negative Objective vital signs Vital Sign Date Time Temp Pulse Resp B/P (MAP) Pulse Ox O2 Delivery O2 Flow Rate FiO2 01/15/25 14:17 89 20 97 01/15/25 14:09 Room Air 0.0 01/15/25 14:09 21 01/15/25 13:00 97.8 142/76 (98) 97.8 Total Intake and Output 01/14/25 01/14/25 01/15/25 15:00 23:00 07:00 Intake Total 1600 ml 500 ml Balance 1600 ml 500 ml medications Current Medications Medications Dose Ordered Sig/Yazmin Route Start Time Stop Time Status Last Admin Dose Admin Acetaminophen/ Hydrocodone Bitart 1 tab Q4HP PRN PO 01/12/25 12:30 01/15/25 15:46 1 TAB Ondansetron HCl 4 mg Q4HP PRN IV 01/12/25 12:30 Docusate Sodium 100 mg BIDPRN PRN PO 01/12/25 12:30 01/14/25 10:59 100 MG Acetaminophen 650 mg Q6HP PRN PO 01/12/25 12:30 01/12/25 20:35 650 MG Albuterol 2.5 mg Q4HWA [facility] 01/12/25 14:00 01/15/25 14:09 2.5 MG Ipratropium [place] 0.5 mg Q4HWA [facility] 01/12/25 14:00 01/15/25 14:09 0.5 MG Amlodipine Besylate 10 mg DAILY PO 01/13/25 10:00 01/15/25 09:15 10 MG Albuterol 2.5 mg Q2HPRN PRN NEB 01/13/25 13:15 Ipratropium [place] 0.5 mg Q2HPRN PRN NEB 01/13/25 13:15 Ceftriaxone Sodium 50 ml @ 100 mls/hr DAILY@09 IV 01/14/25 09:30 01/15/25 09:05 100 MLS/HR Doxycycline Hyclate 100 ml @ 50 mls/hr Q12H IV 01/14/25 09:30 01/15/25 09:15 50 MLS/HR Loratadine 10 mg DAILY PO 01/15/25 10:00 01/15/25 09:16 10 MG Prednisone 40 mg DAILY PO 01/16/25 10:00 Examination General Appearance: Alert, Oriented X3, Cooperative, No acute distress HEENT: Atraumatic, PERRLA, EOMI, Mucous membrane moist/pink Respiratory: bilateral wheezing present Cardiovascular: Regular rate, Normal S1, Normal S2, No murmurs, no chest wall tenderness Abdominal: Normal bowel sounds, Soft, No tenderness, No hepatospenomegaly, No masses Extremities: No clubbing, No cyanosis, No edema, Normal pulses, No tenderness/swelling Skin: No rashes, No breakdown, No significant lesion Neuro: Normal gait, Normal speech, Strength at 5/5 X4 ext, Normal tone, Sensation intact, Cranial nerves 3-12 NL, Reflexes 2+ Psych/Mental Status: Mental status NL, Mood NL laboratory and microbiology Laboratory Tests 01/15/25 05:21 Test 01/15/25 05:21 Range/Units Serum Glucose 116 H 74-106 mg/dL Problem List/Assessment/Plan Problem List/Assessment/Plan Assessment and plan COPD exacerbation asthma exacerbation albuterol nebulization Ipratropium nebulization Methylprednisolone Magnesium Supportive oxygen, humidified azithromycin Rule out Upper respiratory tract infection COVID swab, influenza swab Essential hypertension Continue amlodipine DIET: Cardiac diet CODE STATUS: Goal of care discussed for more than 18 minutes, full code DISPOSITION: Med/surge RECONCILED HOME MEDS: Trelegy, amlodipine 10 mg PCP: Dr. Chen Patient's status and plan discussed with the patient. Case discussed with Dr. Contreras Plan discussed with: Patient Date of Service: Jan 15, 2025 Billing Provider: OLI CONTRERAS MD Common Visit Codes: [id number] INP/OBS CARE(HIGH) YOVANA SEPULVEDA RESIDENT Jan 15, 2025 16:11 OLI CONTRERAS MD Jan 19, 2025 20:21
--- NOTE | 2025-01-16 12:42 | DVH ---
Upper Extremity Venous Duplex Clinical History: rule out Comparison: None Technique: Duplex Doppler evaluation of the venous system of the RIGHT lower neck and upper extremity including color Doppler and spectral/pulsed waveform analysis was performed. Findings: The internal jugular vein demonstrates appropriate compressibility and waveform variability. The subclavian vein is patent on color Doppler evaluation without intraluminal thrombus and demonstra robert waveform variability. The visualized portion of the brachiocephalic vein is patent on color Doppler evaluation without intr aluminal thrombus and demonstrates waveform variability. The axillary vein demonstrates appropriate compressibility and waveform variability. The brachial veins demonstrate appropriate compressibility and patency on Doppler evaluation. The basilic vein demonstrates appropriate compressibility and patency on Doppler evaluation. The cephalic vein demonstrates occlusive thrombus and no flow in the left cephalic vein. Impression: 1. No deep venous thrombosis left upper extremity 2. Findings consistent with superficial venous thrombosis left upper extremity in the cephalic vein. 3. If clinical concern/symptoms persist or worsen, short-interval follow-up study is suggested.
[2025-01-16] MEDS ORDERED: NICO14DI5 TD (13:22)
[2025-01-16] MEDS ORDERED: FLUT1AER3 IN (13:22)
[2025-01-16] MEDS ORDERED: ALBUAER3 IN (13:24)
[2025-01-16] MEDS ORDERED: DOXY-346 PO (15:23)
[2025-01-16] MEDS ORDERED: PRED20TA2 PO (15:23)
--- NOTE | 2025-01-16 16:12 | DVHDSRES ---
Discharge Summary Date of Admission Resident Creating Document: YOVANA SEPULVEDA RESIDENT Jan 12, 2025 at 12:29 Date of Discharge: Jan 16, 2025 Labs/Diagnostic Data: Laboratory Results Test 01/15/25 05:21 01/14/25 05:28 01/13/25 11:04 01/13/25 05:19 White Blood Count 12.0 10^3/uL (4.4-10.8) Red Blood Count 4.31 10^6/uL (4.0-5.20) Hemoglobin 13.1 g/dL (12.2-16.2) Hematocrit 39.3 % (36.0-46.0) Mean Corpuscular Volume 91.3 fL (80.0-100.0) Mean Corpuscular Hemoglobin 30.4 pg (28.0-32.0) Mean Corpuscular Hemoglobin Concent 33.3 g/dL (32.0-36.0) Red Cell Distribution Width 13.9 % (11.8-14.3) Platelet Count 281 10^3/uL (140-450) Mean Platelet Volume 8.1 fL (6.9-10.8) Neutrophils (%) (Auto) 84.4 % (37.0-80.0) Lymphocytes (%) (Auto) 10.9 % (10.0-50.0) Monocytes (%) (Auto) 4.6 % (0.0-12.0) Eosinophils (%) (Auto) 0.0 % (0.0-7.0) Basophils (%) (Auto) 0.1 % (0.0-2.0) Neutrophils # (Auto) 10.2 10 ^3/uL (1.6-8.6) Lymphocytes # (Auto) 1.3 10 ^3/uL (0.4-5.4) Monocytes # (Auto) 0.6 10 ^3/uL (0-1.3) Eosinophils # (Auto) 0 10 ^3/uL (0-0.8) Basophils # (Auto) 0 10 ^3/uL (0-0.2) Nucleated Red Blood Cells 0.0 % Sodium Level 139 mmol/L (136-145) Potassium Level 4.3 mmol/L (3.5-5.1) Chloride Level 106 mmol/L (98-107) Carbon Dioxide Level 25 mmol/L (20-31) Anion Gap 8 (5-15) Blood Urea Nitrogen 17 mg/dL (9-23) Creatinine 0.71 mg/dL (0.550-1.02) Glomerular Filtration Rate Calc 100 mL/min (>90) BUN/Creatinine Ratio 23.9 (10.0-20.0) Serum Glucose 116 mg/dL (74-106) Calcium Level 10.9 mg/dL (8.7-10.4) Total Bilirubin 0.6 mg/dL (0.2-1.0) Aspartate Amino Transferase (AST) 22 U/L (13-40) Alanine Aminotransferase (ALT) 18 U/L (7-40) Alkaline Phosphatase 66 U/L (46-116) Total Protein 7.2 g/dL (5.7-8.2) Albumin 4.2 g/dL (3.2-4.8) D-Dimer, Quantitative 0.25 mg/L FEU (0.0-0.49) B-Type Natriuretic Peptide 153.50 pg/mL (0-100) Test 01/12/25 12:55 01/12/25 09:05 01/12/25 08:37 Influenza Type A Antigen Negative (Negative) Influenza Type B Antigen Negative (Negative) SARS-CoV-2 Antigen (Rapid) Negative (NEGATIVE) Urine Color Light-yellow (Yellow) Urine Clarity Clear (Clear) Urine pH 6.5 (5.0-9.0) Urine Specific [place] 1.011 (1.001-1.035) Urine Protein Negative (Negative) Urine Ketones Negative (Negative) Urine Blood Negative /uL (Negative) Urine Nitrite Negative (Negative) Urine Bilirubin Negative (Negative) Urine Urobilinogen Normal mg/dL (Negative) Urine Leukocyte Esterase Negative /uL (Negative) Urine RBC <1 /hpf (0 - 4) Urine Microscopic WBC < 1 /HPF (0-5) Urine Squamous Epithelial Cells Few /hpf (<5) Urine Bacteria None seen /hpf (None Seen) Urine Glucose Normal mg/dL (Normal) Troponin I High Sensitivity 3 ng/L (</=34) Other Laboratory Tests 01/15/25 05:21 Brief Hx & Hospital Course: Yoandy Charo 54-year-old female with past medical history of asthma, COPD, hypertension, cardiomyopathy presented with complaints of shortness of breath, cough, chest tightness since 1 day. Patient states he was the ER the previous day with her adult autistic son who came in with similar complaints. He was admitted to the hospital the patient went back home. At home she experienced these symptoms which brought her back to the ED. She stated that her last asthma attack was 1 year back. She stated that she has to use rescue albuterol nebulization once in 3 months. Chestxray was normal, extremity venous study was negative for DVT. Patient was treated with Nebulizations, antiallergics and steroids. the course of the hospital stay, shortness of the breath improved, wheezing subsided and the patient was better clinically and hence being discharged. Condition at Discharge: Fair Final Diagnosis/Problems List COPD exacerbation asthma exacerbation Upper respiratory tract infection Acute respiratory distress Pneumonitis Essential hypertension Discharge Disposition: Home Discharge Instruct/Medications Diet: Cardiac 2g Na,low cholest Activity: No Restrictions, As Tolerated Follow Up/Referral: F/u with PCP in 7days Medications: Trelegy elipta Ventolin Nicotine patch Scheduled Amlodipine Besylate (Amlodipine Besylate), 1 TAB PO DAILY, (Reported) Doxycycline (Monohydrate) (Doxycycline), 100 MG PO BID Uuxdhbovylz-Bhewtlqvznlt-Oygkh (Trelegy Ellipta 100-62.5-25 Mcg/INH), 1 AER IN DAILY Lisinopril (Lisinopril), DAILY, (Reported) Nicotine (Nicoderm Cq), 14 MG TD DAILY Prednisone (Prednisone), 40 MG PO DAILY Scheduled PRN Albuterol Sulfate (Ventolin Mdi), 90 MCG IN Q4HP PRN Miscellaneous Medications [Iron], (Reported) Discharge Statement: "Patient was advised to return to the ER or call 911 if any headaches, dizziness, shortness of breath, chest pain, abdominal pain, bleeding, fevers, or worsening of medical condition. Patient was counseled about treatment plan, medications, possible side effects, patientverbalized understanding. All questions were answered to the best of my ability. This discharge took greater then 30 minutes in planning, reviewing documentation, counseling the patient, and discussing with other team members." ASSESSMENT ASSESSMENT Assessment COPD exacerbation Date of Service: Jan 16, 2025 Billing Provider: OLI BURGESS MD Common Visit Codes: 10285-ZYO/OBS DISCH DAY >30min YOVANA SEPULVEDA Jan 16, 2025 16:12 OLI BURGESS MD Jan 19, 2025 20:20
== END 2025-01-16 15:10 | disposition home or self-care (01) | DRG 140 ==
LOC: ER 07:26 → OVERFLOW 12:29 → CENTRAL 21:20
PROVIDERS: ADMIT Internal Medicine Geriatric Medicine; ATTEND Internal Medicine Geriatric Medicine
DX: J44.1 Chronic obstructive pulmonary disease with (acute) exacerbation (principal); J96.01 Acute respiratory failure with hypoxia; I10 Essential (primary) hypertension; J45.901 Unspecified asthma with (acute) exacerbation; J98.4 Other disorders of lung; Z20.822 Contact with and (suspected) exposure to COVID-19; D72.828 Other elevated white blood cell count; T38.0X5A Adverse effect of glucocorticoids and synthetic analogues, initial encounter; F17.210 Nicotine dependence, cigarettes, uncomplicated; J06.9 Acute upper respiratory infection, unspecified; Z81.8 Family history of other mental and behavioral disorders; Z79.899 Other long term (current) drug therapy
CPT/HCPCS: 36415; 71045; 80048; 80053; 81001; 83880; 84484; 85025; 85379; 87426; 87804; 93005; 93306; 93971; 94618; 94640; 96374; 99291; 99292; G0378